=== PATIENT | female | born 1965 | race Caucasian/White ===

== ENCOUNTER 2017-06-28 13:42 | Emergency (ER) | payer OTHER ==
[~2017-06-28] VITALS: Ht 167.6 cm; Wt 77.1 kg
[2017-06-28 13:42] VITALS: BP 120/73
[2017-06-28 14:28] LABS: BASOPHILS % (AUTO) 0.4 % (0.0-2.0); EOSINOPHILS # (AUTO) 0.1 /CMM (0.0-0.7); EOSINOPHILS % (AUTO) 1.1 % (0.0-6.0); HEMATOCRIT 45 % (33-45); HEMOGLOBIN 14.9 g/dL (11.5-14.8); LYMPHOCYTES # (AUTO) 1.8 /CMM (0.8-4.8); LYMPHOCYTES % (AUTO) 22.7 % (20.0-44.0); MEAN CORPUSCULAR HEMOGLOBIN 29 PG (26.0-33.0); MEAN CORPUSCULAR HGB CONC 34 g/dl (31.0-36.0); MEAN CORPUSCULAR VOLUME 87 fL (82-100); MONOCYTES # (AUTO) 0.6 /CMM (0.1-1.30); MONOCYTES % (AUTO) 7.9 % (2.0-12.0); NEUTROPHILS # (AUTO) 5.2 /CMM (1.8-8.9); NEUTROPHILS % (AUTO) 67.9 % (43.0-81.0); PLATELET COUNT (AUTO) 203 /CMM (150-450); RDW COEFFICIENT OF VARIATION 12.9 (11.5-15.0); RED BLOOD CELL COUNT(AUTO) 5.09 MIL/uL (4.0-5.2); WHITE BLOOD COUNT (AUTO) 7.7 K/uL (4.3-11.0)
[2017-06-28 14:37] LABS: CARBON DIOXIDE 26 mmol/L (21-32); CHLORIDE 98 mmol/L (98-107); CREATININE 0.7 mg/dL (0.6-1.3); GLUCOSE 156 mg/dL (74-106); POTASSIUM 3.6 mmol/L (3.5-5.1); SODIUM SERUM 133 mmol/L (136-145); UREA NITROGEN, BLOOD 4 mg/dL (7-18)
[2017-06-28 14:42] LABS: APPEARANCE,URINE Slightly Cloudy (CLEAR); BILIRUBIN,URINE Negative (NEGATIVE); BLOOD, URINE Trace-lysed Ery/uL (NEGATIVE); COLOR,URINE Yellow (YELLOW); KETONES,URINE Negative (NEGATIVE); LEUKOCYTE ESTERASE ,URINE Small (NEGATIVE); NITRITE, URINE Negative (NEGATIVE); PH,URINE 6.5 (5.0-8.0); PROTEIN,URINE Negative (NEGATIVE); UGLUCOSE Negative (NEGATIVE); UROBILINOGEN,URINE 0.2 EU/dL (0.2)
[2017-06-28 14:50] LABS: ACETAMINOPHEN < 10 ug/ml (10-30); ALANINE AMINOTRANSFERASE 30 U/L (12-78); ALCOHOL, BLOOD 4 mg/dL (0-0); ALKALINE PHOSPHATASE 83 U/L (46-116); ASPARTATE AMINOTRANSFERASE 21 U/L (15-37); BILIRUBIN,DIRECT 0.1 mg/dL (0.0-0.2); BILIRUBIN,TOTAL 0.3 mg/dL (0.2-1.0); SALICYLATE 3.7 mg/dL (2.8-20.0); TOTAL PROTEIN, SERUM 7.8 g/dL (6.4-8.2)
[2017-06-28 15:08] LABS: BACTERIA,URINE 1+ /HPF (None Seen); RBC,URINE 0-2 /HPF (0-2); SQUAMOUS EPITHELIAL CELL,UR Many /HPF (None Seen)
--- NOTE | 2017-06-28 16:26 | NUR ---
community development worker consult requested by charge nurse Bonifacio due to the patient expressing suicidal ideation "I want to go to [facility] right now." Patient is awake and oriented to person and partially to time. Per chart, patient presented to the emergency department for complaint of suicidal ideation with no plan. community development worker met with the patient bedside. She stated that she has been feeling suicidal and reports "I have to get out of my body and go to [facility]." community development worker assessed for plan, means, and intent. Per the patient, she does not have a specific plan and reported "any way possible." Patient is currently experiencing delusions and believes that she is participating in a game show and needs to get off the set. Patient frequently stating "I need to get off of the set." Patient is denying auditory hallucinations at this time and reported that previously she would hear voices inside her head and in the claire. Patient expressing suicidal ideation to harm herself any way possible. Patient denying homicidal ideations. Patient has minimal alcohol use and toxicology screen is negative for drug use. Per the patient, she is homeless and has been living on [address]. She does receive disability ($964/month). Patient is not on a hold at this time and is willing to go voluntary to [facility] ([address] [place] [id number]; [phone]). community development worker called [facility] and spoke with Pennie. Pennie stated that they do have bed availability for the patient (voluntary) and hospital would need to send the labs ( test, CBC, CMP, UD, UA, and a note from the medical doctor stating that she is medically cleared). ER staff to fax documents to [facility] at FAX #: [phone] and transfer there for admission under voluntary status. Patient is willing to go voluntary to [facility]. YENI spoke with Mario in ER and he stated that he will follow up and labs faxed to [facility]. Patient's nurse Noam also notified.
--- NOTE | 2017-06-28 16:39 | NUR ---
Discharge Plan: Patient is not on a hold at this time and is willing to go voluntary to [facility] ([address] [place] [address]; [phone]). ornamental iron worker called [facility] and spoke with Pennie. Pennie stated that they do have bed availability for the patient (voluntary) and hospital would need to send the facesheet/h&p, and labs ( test, CBC, CMP, UD, UA, and a note from the medical doctor stating that she is medically cleared). ER staff to fax documents to [facility] at FAX #: [phone] and transfer there for admission under voluntary status. Patient is willing to go voluntary to [facility]. YENI spoke with Mario in ER and he stated that he will follow up and will fax labs to [facility] for transfer.
--- NOTE | 2017-06-28 19:32 | NUR ---
CALLED SO CALL DOC NUMBER TO CALL FOR REPORT IS EXT [phone]
--- NOTE | 2017-06-28 19:52 | NUR ---
PT REMOVED FROM HOSPITAL BY SECURITY; SMOKING CIGARETTES INSIDE THE HOSPITAL. PT WAS MEDICALLY CLEARED AND DISCHARGED, BUT "COULD NOT WAIT FOR MY PAPERS; I NEEDED MY CIGARETTE NOW." DR. COLEMAN NOTIFIED. VSS.
== END 2017-06-28 19:56 | disposition home or self-care (01) ==
LOC: ER 13:44
DX: R45.851 Suicidal ideations (principal); R44.3 Hallucinations, unspecified; F43.10 Post-traumatic stress disorder, unspecified; F20.9 Schizophrenia, unspecified; F32.9 Major depressive disorder, single episode, unspecified; I10 Essential (primary) hypertension; F41.0 Panic disorder [episodic paroxysmal anxiety]
CPT/HCPCS: 36415; 80048; 80076; 80305; 80329; 81001; 84703; 85025; 87077; 87086; 87186; 99285; A4606; G0480 ×2; Z7610; 81000-TC

== ENCOUNTER 2017-08-19 06:42 | Emergency (ER) | payer OTHER ==
[~2017-08-19] VITALS: Ht 165.1 cm; Wt 108.9 kg
--- NOTE | 2017-08-19 06:54 | NUR ---
PT AMBULATORY TO ER BED 10. "THEY STOLE MY PSYCH MEDS AND I ALSO DONT FEEL SAFE"; DENIES SI/HI. PT PLACED IN GOWN AND ON MATERIALS BUYER. VSS/RESP EVEN UNLABORED/NAD NOTED/SKIN WARM AND DRY/DENIES N-V-D/AOX4. AWAITING MD GLORIA.
--- NOTE | 2017-08-19 07:03 | NUR ---
URINE SPECIMEN OBTAINED AND SENT TO THE LAB.
--- NOTE | 2017-08-19 07:13 | NUR ---
ENDORSED TO [facility] FOR JOSELYN.
--- NOTE | 2017-08-19 07:15 | NUR ---
RECEIVED REPORT FOR JOSELYN. PATIENT IN STABLE CONDITION, WILL MONITOR.
[2017-08-19 07:37] LABS: APPEARANCE,URINE SL CLOUDY (CLEAR); BILIRUBIN,URINE NEGATIVE (NEGATIVE); BLOOD, URINE NEGATIVE Ery/uL (NEGATIVE); COLOR,URINE YELLOW (YELLOW); KETONES,URINE NEGATIVE (NEGATIVE); LEUKOCYTE ESTERASE ,URINE 2+ (NEGATIVE); NITRITE, URINE POSITIVE (NEGATIVE); PROTEIN,URINE NEGATIVE (NEGATIVE); UGLUCOSE NEGATIVE (NEGATIVE); UROBILINOGEN,URINE 0.2 EU/dL (0.2)
[2017-08-19 07:44] LABS: CARBON DIOXIDE 28 mmol/L (21-32); CHLORIDE 103 mmol/L (98-107); CREATININE 0.9 mg/dL (0.6-1.3); GLUCOSE 152 mg/dL (74-106); POTASSIUM 4.4 mmol/L (3.5-5.1); SODIUM SERUM 137 mmol/L (136-145); UREA NITROGEN, BLOOD 14 mg/dL (7-18)
[2017-08-19 07:49] LABS: ALANINE AMINOTRANSFERASE 23 U/L (12-78); ALBUMIN 3.1 g/dL (3.4-5.0); ALKALINE PHOSPHATASE 77 U/L (46-116); ASPARTATE AMINOTRANSFERASE 19 U/L (15-37); BILIRUBIN,DIRECT 0.1 mg/dL (0.0-0.2); BILIRUBIN,TOTAL 0.2 mg/dL (0.2-1.0); SALICYLATE 4.5 mg/dL (2.8-20.0); TOTAL PROTEIN, SERUM 7.9 g/dL (6.4-8.2)
[2017-08-19 07:50] LABS: ACETAMINOPHEN 0 ug/ml (10-30); ALCOHOL, BLOOD < 3 mg/dL (0-0)
[2017-08-19 07:56] LABS: BASOPHILS % (AUTO) 0.4 % (0.0-2.0); EOSINOPHILS # (AUTO) 0.1 /CMM (0.0-0.7); EOSINOPHILS % (AUTO) 1.9 % (0.0-6.0); HEMATOCRIT 41 % (33-45); HEMOGLOBIN 13.9 g/dL (11.5-14.8); LYMPHOCYTES # (AUTO) 1.5 /CMM (0.8-4.8); LYMPHOCYTES % (AUTO) 29.2 % (20.0-44.0); MEAN CORPUSCULAR HEMOGLOBIN 30 PG (26.0-33.0); MEAN CORPUSCULAR HGB CONC 34 g/dl (31.0-36.0); MEAN CORPUSCULAR VOLUME 88 fL (82-100); MONOCYTES # (AUTO) 0.3 /CMM (0.1-1.30); MONOCYTES % (AUTO) 5.7 % (2.0-12.0); NEUTROPHILS # (AUTO) 3.3 /CMM (1.8-8.9); NEUTROPHILS % (AUTO) 62.8 % (43.0-81.0); PLATELET COUNT (AUTO) 232 /CMM (150-450); RDW COEFFICIENT OF VARIATION 14.4 (11.5-15.0); RED BLOOD CELL COUNT(AUTO) 4.67 MIL/uL (4.0-5.2); WHITE BLOOD COUNT (AUTO) 5.3 K/uL (4.3-11.0)
[2017-08-19 08:21] LABS: RBC,URINE NONE SEEN /HPF (0-2); WBC,URINE 51-80 /HPF (0-3)
[2017-08-19 08:22] LABS: BACTERIA,URINE 2+ /HPF (None Seen); SQUAMOUS EPITHELIAL CELL,UR Moderate /HPF (None Seen)
[2017-08-19] MEDS ORDERED: CIPROFLOXACIN HCL 500 MG TABLET ONE (08:46)
--- NOTE | 2017-08-19 08:56 | NUR ---
PER DR. DUBOIS, ADMINISTER CIPRO 500 MG PO.
[2017-08-19] MEDS ORDERED: CIPROFLOXACIN HCL 250 MG TABLET PO ONE (09:00)
--- NOTE | 2017-08-19 09:10 | NUR ---
PATIENT REQUESTING NICOTINE PATCH, INFORMED AND CONFIRMED OKAY TO ADMINISTER.
[2017-08-19] MEDS ORDERED: NICOTINE PATCH (14MG) 14 MG PATCH.TD24 TD ONE (09:30)
[2017-08-19] MEDS ORDERED: NICOTINE PATCH (14MG) 14 MG PATCH.TD24 TD SCH (09:30)
--- NOTE | 2017-08-19 11:10 | NUR ---
CALLED [facility] FOR PSYCH EVAL, ETA WITHIN THE HOUR
[2017-08-19] MEDS ORDERED: OLANZAPINE 5 MG TABLET PO ONE (12:00)
[2017-08-19] MEDS ORDERED: OLANZAPINE 5 MG TABLET ONE (12:11)
--- NOTE | 2017-08-19 13:38 | NUR ---
RECEIVED CALL FROM [facility], PT ACCEPTED TO [facility] BY , NUMBER TO GIVE REPORT IS [phone] EXT [phone]
--- NOTE | 2017-08-19 14:15 | NUR ---
REQUESTED [facility] FOR TRANSPORT TO [facility], ETA 30 MIN
--- NOTE | 2017-08-19 14:15 | NUR ---
REPORT GIVEN TO SABA YAÑEZ AT [facility] FOR JOSELYN UPON TRANSFER.
[2017-08-19 14:18] VITALS: BP 144/86
--- NOTE | 2017-08-19 14:42 | NUR ---
REPORT GIVEN TO EMT AT BEDSIDE. PATIENT TRANSFERRED TO [facility] IN STABLE CONDITION.
== END 2017-08-19 14:44 ==
LOC: ER 06:42
DX: R45.851 Suicidal ideations (principal); F41.0 Panic disorder [episodic paroxysmal anxiety]; F17.200 Nicotine dependence, unspecified, uncomplicated; I10 Essential (primary) hypertension; F31.9 Bipolar disorder, unspecified; Z59.0 Homelessness
CPT/HCPCS: 36415; 80048-TC; 80076-TC; 80305; 81000-TC; 84703-TC; 85025-TC; 87086-TC; 87186-TC; A4606; G0480; Z7610